=== PATIENT | female | born 1945 | race Caucasian/White ===

== ENCOUNTER 2018-02-04 13:53 | Inpatient (IN) | payer MEDICARE, OTHER ==
[2018-01-31 15:33] LABS: CLARITY,URINE CLEAR (Clear); COLOR,URINE YELLOW (Yellow); GLUCOSE, URINE NEGATIVE (Neg); KETONES,URINE NEGATIVE (Neg); LEUKOCYTE ESTERASE ,URINE NEGATIVE (Neg); NITRITES, URINE NEGATIVE (Neg); OCCULT BLOOD,URINE NEGATIVE (Neg); PROTEIN,URINE NEGATIVE (Neg); UROBILINOGEN,URINE 0.2 E.U/dL (0.2-1.0)
[2018-01-31 15:35] LABS: UA COLLECTION TYPE NON-SPECIFIED
[~2018-02-04] VITALS: Ht 162.6 cm; Wt 75.3 kg
[2018-02-04] VITALS (15 sets, daily range): BP systolic 117–159; BP diastolic 65–85
[~2018-02-04 13:53] MED LIST: NO HOME MEDS; acetaminophen 325mg tablet PO ONE; cefazolin/dext.iso 2gm/100 ML IV ONE; celeCOXIB 100mg capsule PO ONE; famotidine 20mg tablet PO ONE; gabapentin 300mg capsule PO ONE; oxyCODONE SR 10mg (sust. release) tab PO ONE; ringers solution, lacted 1,000 ML IV SCH; tranexamic acid inj. 1,500 MG in normal saline 100ml IV soln 85 ML IV ONE
[2018-02-04] MEDS ORDERED: bacitracin inj 150,000 UNIT in sodium chloride irrig. sol 3,000 ML IR ONE (15:00)
[2018-02-04] MEDS ORDERED: ROPIVAcaine 0.5% (5mg/ml) 30ml vial ONE ×2 (16:06→16:51)
[2018-02-04] MEDS ORDERED: ePHEDrine 50MG/ML INJ. ONE (16:15)
[2018-02-04] MEDS ORDERED: MIDAZolam 5mg/5ml vial ONE (16:21)
[2018-02-04] MEDS ORDERED: fentaNYL/PF 50MCG/1 ML 2ML syringe ONE (16:21)
[2018-02-04] MEDS ORDERED: BUPIVAcaine/dex-water/PF 7.5 mg/ml 2ml ampul ONE (16:22)
[2018-02-04] MEDS ORDERED: propofol inj 20 ML IV ONE (16:30)
[2018-02-04] MEDS ORDERED: ringers solution, lacted 1,000 ML IV SCH (17:32)
[2018-02-04] MEDS ORDERED: meperidine/PF 25mg/ml syringe IV PRN ×3 (17:35)
[2018-02-04] MEDS ORDERED: morphine 4 MG/ML inj SYRINge IV PRN ×2 (17:35)
[2018-02-04] MEDS ORDERED: ondansetron/PF 4mg/2ml inj IV PRN ×2 (17:35→18:45)
[2018-02-04] MEDS ORDERED: proCHLORperazine 10 MG/2 ml inj IV PRN (17:35)
[2018-02-04] MEDS ORDERED: bisacodyl 10mg suppository rectal RC PRN (18:45)
[2018-02-04] MEDS ORDERED: magnesium hydroxide 30ml (MOM) UD suspension PO PRN (18:45)
[2018-02-04] MEDS ORDERED: acetaminophen 325mg tablet PO PRN (18:45)
[2018-02-04] MEDS ORDERED: diphenhydrAMINE 25mg capsule PO PRN ×2 (18:45)
[2018-02-04] MEDS ORDERED: oxyCODONE/APAP 10/325mg tablet PO PRN (18:45)
[2018-02-04] MEDS: gabapentin 300mg capsule PO SCH (20:30)
[2018-02-04] MEDS: ascorbic acid 500mg tablet PO SCH (20:30)
[2018-02-04] MEDS: potassium cl 20mEq in 1/2 NS 1,000 ML IV SCH (20:30)
[2018-02-04] MEDS: sennosides 8.6mg tablet PO SCH (20:30)
[2018-02-04] MEDS: HYDROmorphone 1 mg/ml syringe IV PRN (21:28)
[2018-02-05] MEDS: ceFAZolin 1GM/D5W- ADD-VANTAGE 50 ML IV SCH ×2 (00:19→07:26)
[2018-02-05 02:00] VITALS: BP 109/60
[2018-02-05] MEDS: potassium cl 20mEq in 1/2 NS 1,000 ML IV SCH ×3 (05:44→20:10)
[2018-02-05] MEDS: oxyCODONE/APAP 10/325mg tablet PO PRN ×4 (05:45→21:43)
[2018-02-05 06:00] VITALS: BP 108/61
[2018-02-05 07:28] LABS: HEMATOCRIT 30.5 % (35.0-45.0); HEMOGLOBIN 9.2 g/dl (12.0-16.0); MEAN CORPUSCULAR HEMOGLOBIN 18.1 PG (27.0-31.0); MEAN CORPUSCULAR HGB CONC 30.2 % (33.0-36.5); MEAN PLATELET VOLUME 9.8 FL (7.4-10.4); PLATELET COUNT 177 X10'3 (140-440); RED BLOOD COUNT 5.08 X10'6 (4.20-5.60); WHITE BLOOD COUNT 8.4 X10'3 (4.5-11.0)
[2018-02-05 07:46] LABS: INR 1.7 INR; PROTHROMBIN TIME 17.1 SECONDS (9.0-12.0)
[2018-02-05 07:47] LABS: ANION GAP 9 (8-16); CHLORIDE 103 MMOL/L (99-107); POTASSIUM 4.4 MMOL/L (3.5-5.1); SODIUM 138 MMOL/L (135-145); TOTAL CARBON DIOXIDE 25.9 MMOL/L (24-32)
[2018-02-05 07:49] LABS: PLATELET ESTIMATE NORMAL; TOTAL CELLS COUNTED 100
[2018-02-05 07:50] LABS: ANISOCYTOSIS 1+; HYPOCHROMASIA 2+; MICROCYTOSIS 2+; TARGET CELLS FEW
[2018-02-05 07:51] LABS: ELLIPTOCYTES FEW
[2018-02-05] MEDS: ascorbic acid 500mg tablet PO SCH ×2 (09:01→20:08)
[2018-02-05] MEDS: gabapentin 300mg capsule PO SCH ×3 (09:02→20:08)
[2018-02-05] MEDS: multivitamins, therapeutics tablet PO SCH (09:02)
[2018-02-05] MEDS ORDERED: warfarin 1mg tablet PO ONE (10:00)
[2018-02-05 10:33] VITALS: BP 109/62
[2018-02-05] MEDS: HYDROmorphone 1 mg/ml syringe IV PRN ×2 (12:23→20:19)
[2018-02-05 14:00] VITALS: BP 110/56
[2018-02-05 18:04] VITALS: BP 145/76
[2018-02-05] MEDS: sennosides 8.6mg tablet PO SCH (20:08)
[2018-02-05] MEDS: celeCOXIB 100mg capsule PO SCH (20:08)
[2018-02-05 22:00] VITALS: BP 120/69
[2018-02-06] MEDS: oxyCODONE/APAP 10/325mg tablet PO PRN ×6 (02:00→23:09)
[2018-02-06] MEDS: potassium cl 20mEq in 1/2 NS 1,000 ML IV SCH ×2 (02:45→10:45)
[2018-02-06 05:27] LABS: HEMATOCRIT 28.1 % (35.0-45.0); HEMOGLOBIN 8.7 g/dl (12.0-16.0); MEAN CORPUSCULAR HEMOGLOBIN 18.4 PG (27.0-31.0); MEAN CORPUSCULAR HGB CONC 30.8 % (33.0-36.5); MEAN CORPUSCULAR VOLUME 59.9 FL (78-98); PLATELET COUNT 108 X10'3 (140-440); RED CELL DISTRIBUTION WIDTH 16.3 % (11.5-14.5); WHITE BLOOD COUNT 8.4 X10'3 (4.5-11.0)
[2018-02-06 05:39] LABS: INR 1.9 INR; PROTHROMBIN TIME 18.8 SECONDS (9.0-12.0)
[2018-02-06 06:00] VITALS: BP 123/59
[2018-02-06 06:22] LABS: ANISOCYTOSIS 1+; PLATELET ESTIMATE DECREASED; TOTAL CELLS COUNTED 100
[2018-02-06 06:23] LABS: HYPOCHROMASIA 2+; MICROCYTOSIS 3+; SPHEROCYTES 1+; TARGET CELLS FEW
[2018-02-06] MEDS: gabapentin 300mg capsule PO SCH ×3 (07:02→19:11)
[2018-02-06] MEDS: multivitamins, therapeutics tablet PO SCH (07:02)
[2018-02-06] MEDS: HYDROmorphone 1 mg/ml syringe IV PRN (07:02)
[2018-02-06] MEDS: celeCOXIB 100mg capsule PO SCH ×2 (07:02→19:11)
[2018-02-06] MEDS: ascorbic acid 500mg tablet PO SCH ×2 (07:02→19:11)
[2018-02-06 10:00] VITALS: BP 93/47
[2018-02-06] MEDS ORDERED: warfarin 1mg tablet PO ONE (10:00)
[2018-02-06 18:00] VITALS: BP 99/54
[2018-02-06] MEDS ORDERED: acetaminophen 325mg tablet PO PRN (18:45)
[2018-02-06] MEDS: sennosides 8.6mg tablet PO SCH (19:11)
[2018-02-06 22:00] VITALS: BP 98/51
[2018-02-07] MEDS: oxyCODONE/APAP 10/325mg tablet PO PRN ×2 (03:55→09:10)
[2018-02-07 05:42] LABS: INR 1.4 INR; PROTHROMBIN TIME 14.3 SECONDS (9.0-12.0)
[2018-02-07 05:51] LABS: BASOPHILS # (AUTO) 0.1 X10'3 (0-0.2); BASOPHILS % (AUTO) 0.9 % (0-1); EOSINOPHILS # (AUTO) 0.4 X10'3 (0-0.9); EOSINOPHILS % (AUTO) 5.3 % (0-6); HEMATOCRIT 26.5 % (35.0-45.0); HEMOGLOBIN 8.1 g/dl (12.0-16.0); LYMPHOCYTES # (AUTO) 2.2 X10'3 (1.1-4.8); MEAN CORPUSCULAR HEMOGLOBIN 18.4 PG (27.0-31.0); MEAN CORPUSCULAR HGB CONC 30.7 % (33.0-36.5); MEAN CORPUSCULAR VOLUME 59.8 FL (78-98); MEAN PLATELET VOLUME 9.8 FL (7.4-10.4); MONOCYTES # (AUTO) 0.8 X10'3 (0-0.9); MONOCYTES % (AUTO) 9.9 % (2-12); NEUTROPHILS # (AUTO) 4.6 X10'3 (1.8-7.7); NEUTROPHILS % (AUTO) 56.9 % (42-75); PLATELET COUNT 154 X10'3 (140-440); RED BLOOD COUNT 4.43 X10'6 (4.20-5.60); RED CELL DISTRIBUTION WIDTH 16.5 % (11.5-14.5)
[2018-02-07 06:00] VITALS: BP 95/50
[2018-02-07] MEDS: ascorbic acid 500mg tablet PO SCH (07:06)
[2018-02-07] MEDS: multivitamins, therapeutics tablet PO SCH (07:06)
[2018-02-07] MEDS: celeCOXIB 100mg capsule PO SCH (07:06)
[2018-02-07] MEDS: gabapentin 300mg capsule PO SCH (07:06)
[2018-02-07] MEDS: HYDROmorphone 1 mg/ml syringe IV PRN (07:07)
[2018-02-07 07:35] LABS: ANISOCYTOSIS 1+; PLATELET ESTIMATE NORMAL
[2018-02-07 07:36] LABS: MICROCYTOSIS 3+
[2018-02-07 07:37] LABS: HYPOCHROMASIA 1+; TARGET CELLS 1+
[2018-02-07 07:38] LABS: POLYCHROMASIA 1+
[2018-02-07 07:39] LABS: ELLIPTOCYTES 1+; SCHISTOCYTES FEW
[2018-02-07 10:00] VITALS: BP 105/57
[2018-02-07] MEDS ORDERED: warfarin 3mg tablet PO ONE (10:00)
[2018-02-07] MEDS ORDERED: ASPI-845 PO (10:12)
== END 2018-02-07 10:45 | disposition home or self-care (01) | DRG 470 ==
LOC: PAS IN 13:53 → EDSTATUS 17:00 → ORTHO 4S 19:45 → EDSTATUS 02-11 07:30
PROVIDERS: ADMIT Specialist; ATTEND Specialist
PROC: 3E0T3BZ Introduction of Anesthetic Agent into Peripheral Nerves and Plexi, Percutaneous Approach (ICD-10-PCS; 2018-02-04)
PROC: 0SRC0J9 Replacement of Right Knee Joint with Synthetic Substitute, Cemented, Open Approach (ICD-10-PCS; principal; 2018-02-04 16:15)
DX: M17.11 Unilateral primary osteoarthritis, right knee (principal); Z96.652 Presence of left artificial knee joint; D56.3 Thalassemia minor; M21.161 Varus deformity, not elsewhere classified, right knee; Z98.891 History of uterine scar from previous surgery; Z79.899 Other long term (current) drug therapy
CPT/HCPCS: 36415; 73560; 80051; 81003; 85025; 85610; 87070; 97110; 97116; 97162; 97530; A6449; A6455; A7000; C1713; C1758; C1776; G0378; J0690; J1170; J2250; J2704; J2795; J3010; J3490; J7030; J7120